=== PATIENT | female | born 1955 | race Caucasian/White ===

== ENCOUNTER → 2017-01-03 | Outpatient (CLI) | payer OTHER ==
[~2017-01-03] MED LIST: ASPIRIN81 M1 PO; FLOMAX0.4 M1 PO; GLUCOSAMINE & C1 CAP PO; IBUPROFEN PO; L-LYSINE500 M1 PO; LAMISIL250 MG PO; LORTAB 5/500 TA1 TA1 PO; MEDI-MECLIZINE25 M1 PO; MULTIVITAMIN1 UDCAP PO; NEURONTIN600 MG PO; OSTEOBIFLEX PO; OYSTER CALCIUM500 MG PO; PLAQUENIL200 MG PO; SUPER B COMPLEX1 CAP PO; SYNTHROID0.05 MG PO; TRIAMTERENE-HCT1 TA7 PO; VITAMIN C1000 M2 PO; WATER PILL
--- NOTE | ~2017-01-03 | US136 ---
[facility] A Service of [facility] & [facility] RADIOLOGY TEXT RESULTS PATIENT: KATIE CARDOZA LOCATION: CNIV : 53 UNIT #: [id number] AGE: [address]: Chichi Garcia APRN SEX: F ORDER DR: [id number] [facility] [address] [place], [place] [address] [id number] O MR#: [id number] Acc #: [id number] NAME: KATIE CARDOZA : 1955 SEX: F STUDY DATE/TIME: 01/03/2017 8:35 UNIT: CNIV ROOM: STUDY DESCRIPTION: U/L [facility] Art Study [facility] Attending Physician: Chichi Garcia A.P.R.N. Referring Physician: Chichi Garcia A.P.R.N. Ordering Physician: Chichi Garcia A.P.R.N. Primary Care Physician: Chichi Garcia A.P.R.N. MEDICAL IMAGING REPORT This report is preliminary unless electronic signature is present Study is 6-month history of leg pain and lower extremity edema. Leg pain as described as cramping and occurring at rest. Bilateral lower extremity rest pain. PROCEDURE Bilateral ankle-brachial indices FINDINGS Right brachial pressures 145 and left is 136 mmHg. Right ankle pressure 150 mmHg in the dorsalis pedis and 140 in the posterior tibial with triphasic waveforms. Left ankle pressures 160 in posterior tibial and 156, dorsalis pedis with triphasic waveforms yielding ankle-brachial indices of 1.03 on the right and 1.10 on the left. Digital pressures are within normal limits bilaterally, 125 on the right and 104 on the left at the lower limit of normal. IMPRESSION Normal bilateral lower extremity ankle-brachial indices 1.03 on the right and 1.10 on the left. Dictated by... Kevin Haddad M.D. THIS IS AN ELECTRONICALLY VERIFIED REPORT Kevin Haddad M.D. at 01/07/2017 4:54 PM TEV/cmbeena TD: 01/03/2017 14:44 JOB #: [id number] [facility] A Service of [facility] RADIOLOGY TEXT RESULTS PATIENT: KATIE CARDOZA LOCATION: CNIV : 53 UNIT #: [id number] AGE: [address]: Chichi Garcia APRN SEX: F ORDER DR: MEDICAL IMAGING REPORT Page 1 of 1 COPY
== END | disposition home or self-care (01) ==
LOC: CNIV 08:26
DX: R60.0 Localized edema (principal)
CPT/HCPCS: 93922